=== PATIENT | female | born 1950 | race Caucasian/White ===

== ENCOUNTER 2017-06-18 08:26 | Emergency (ER) | payer OTHER, MEDICARE ==
[~2017-06-18] VITALS: Ht 160 cm; Wt 44.1 kg
[~2017-06-18 08:26] MED LIST: FLEXERIL5 MG PO; PRILOSEC OTC20 MG PO; XANAX0.5 MG PO
[2017-06-18 09:33] LABS: EOSINOPHIL (%) 0.2 % (0-5); HEMATOCRIT 41.9 % (36.0-46.0); IMMATURE GRANULOCYTE (%) 0.2 % (0.0-0.7); INSTRUMENT ABS NEUTROPHIL CT 3.6 K/uL; MCH 28.1 PG (29.0-34.0); MCHC 33.2 G/DL (30.0-36.0); MCV 84.6 FL (83-99); MEAN PLAT.VOLUME 8.7 uM^3 (9.5-12.4); MONOCYTE (%) 6.4 % (3-12); MONOCYTE COUNT 0.3 K/uL (0-0.8); NEUTROPHIL (%) 72.2 % (45-76); NEUTROPHIL COUNT 3.6 K/uL (1.8-6.4); PLATELET COUNT 278 K/uL (156-360); RBC DIS.WIDTH-CV 13.1 % (11.8-14.6); RBC DIS.WIDTH-SD 40.2 % (39-53); RED BLOOD COUNT 4.95 M/uL (3.80-5.20)
[2017-06-18 09:44] LABS: CHLORIDE 104 mEq/L (99-109); POTASSIUM 3.6 mEq/L (3.7-5.4); SODIUM 140 mEq/L (136-147)
[2017-06-18 09:46] LABS: GLUCOSE 118 mg/dL (70-99)
[2017-06-18 09:47] LABS: ANION GAP 10 MEQ/L (2-14)
[2017-06-18 09:48] LABS: TOTAL BILIRUBIN 0.6 mg/dL (0.0-1.0)
[2017-06-18 09:50] LABS: ALKALINE PHOSPHATASE 76 IU/L (3-129); GFR ESTIMATE (CALCULATED) > 59 mL/min/
[2017-06-18 09:51] LABS: UREA NITROGEN (BUN) 11 mg/dL (9-23)
[2017-06-18 09:53] LABS: LIPASE 14 U/L (1.0-51.0)
[2017-06-18 10:22] LABS: ADD MIUA? YES; BILIRUBIN NEGATIVE; BLOOD SMALL; COLOR STRAW ((YELLOW)); GLUCOSE (STRIP) NEGATIVE; KETONES 20; LEUKOCYTES NEGATIVE; NITRITE NEGATIVE; PROTEIN (STRIP) NEGATIVE; SPECIFIC GRAVITY 1.008 (1.000-1.030); UROBILINOGEN 0.2 MG/DL (0.2-1.0)
[2017-06-18 10:24] LABS: BACTERIA NONE SEEN /HPF; EPITHELIAL CELLS RARE /HPF; MUCUS TRACE /LPF; RED BLOOD CELLS 0-5 /HPF (0-5); UCUL ADDED? NO; WHITE BLOOD CELLS 0-5 /HPF (0-5)
[2017-06-18] MEDS ORDERED: FLAGYL500 MG PO (12:42)
[2017-06-18] MEDS ORDERED: AUGMENTIN875 MG PO (12:42)
[2017-06-18] MEDS ORDERED: ZOFRAN ODT4 MG PO (12:43)
[2017-06-18 14:03] VITALS: BP 139/84
== END 2017-06-18 14:05 | disposition home or self-care (01) ==
LOC: EME 08:26
PROVIDERS: Physician Assistant
DX: K52.9 Noninfective gastroenteritis and colitis, unspecified (principal); F41.9 Anxiety disorder, unspecified; M54.2 Cervicalgia; R51 Headache; M25.511 Pain in right shoulder; M25.512 Pain in left shoulder; K57.30 Diverticulosis of large intestine without perforation or abscess without bleeding; Q61.02 Congenital multiple renal cysts; N20.0 Calculus of kidney; Z88.0 Allergy status to penicillin
CPT/HCPCS: 74177; 80053; 81003; 83690; 85025; 99281; 99285; J0780; J7120

== ENCOUNTER 2018-01-13 10:16 | Emergency (ER) | payer OTHER, MEDICARE ==
[~2018-01-13] VITALS: Ht 160 cm; Wt 49.5 kg
[~2018-01-13 10:16] MED LIST changes: +AUGMENTIN875 MG PO; +FLAGYL500 MG PO; +ZOFRAN ODT4 MG PO
[2018-01-13 11:27] LABS: CHLORIDE 103 mEq/L (99-109); POTASSIUM 3.6 mEq/L (3.7-5.4); SODIUM 140 mEq/L (136-147)
[2018-01-13 11:29] LABS: GLUCOSE 125 mg/dL (70-99)
[2018-01-13 11:33] LABS: CREATININE 0.8 mg/dL (0.6-1.3); GFR ESTIMATE (CALCULATED) > 59 mL/min/
[2018-01-13 11:34] LABS: UREA NITROGEN (BUN) 12 mg/dL (9-23)
[2018-01-13 11:38] LABS: APPEARANCE CLEAR ((CLEAR)); BILIRUBIN NEGATIVE; BLOOD LARGE; COLOR YELLOW ((YELLOW)); GLUCOSE (STRIP) NEGATIVE; KETONES 5; LEUKOCYTES NEGATIVE; NITRITE NEGATIVE; PROTEIN (STRIP) NEGATIVE; SPECIFIC GRAVITY 1.008 (1.000-1.030); UROBILINOGEN 0.2 MG/DL (0.2-1.0)
[2018-01-13 11:44] LABS: BACTERIA RARE /HPF; EPITHELIAL CELLS RARE /HPF; MUCUS TRACE /LPF; RED BLOOD CELLS TNTC /HPF (0-5); WHITE BLOOD CELLS 0-5 /HPF (0-5)
[2018-01-13] MEDS ORDERED: ZOFRAN ODT4 MG PO (12:20)
[2018-01-13 12:35] VITALS: BP 140/67
== END 2018-01-13 12:44 | disposition home or self-care (01) ==
LOC: EME 10:16
PROVIDERS: Physician Assistant
DX: R31.9 Hematuria, unspecified (principal); Z87.442 Personal history of urinary calculi; K21.9 Gastro-esophageal reflux disease without esophagitis; M79.7 Fibromyalgia; K58.9 Irritable bowel syndrome, unspecified; F41.9 Anxiety disorder, unspecified; Z88.2 Allergy status to sulfonamides; Z88.1 Allergy status to other antibiotic agents; Z88.0 Allergy status to penicillin; Z88.5 Allergy status to narcotic agent; Z88.8 Allergy status to other drugs, medicaments and biological substances
CPT/HCPCS: 74176; 80048; 81003; 99281; 99285